=== PATIENT | female | born 1960 | race Caucasian/White ===

== ENCOUNTER 2024-03-02 06:31 | Day surgery (SDC) | payer OTHER ==
[2024-03-02] MEDS ORDERED: Lactated Ringers 1,000 ML IV ONE (06:40)
[2024-03-02 07:02] VITALS: RESP 16; O2SAT 97
[2024-03-02] MEDS: Lactated Ringers 1,000 ML IV SCH (07:12)
[2024-03-02] MEDS ORDERED: Xylocaine-Mpf 2% 5 Ml Vial ONE (07:37)
[2024-03-02] MEDS ORDERED: DIPRIVAN 200 MG/20 ML IV ONE (07:37)
[2024-03-02] MEDS ORDERED: ROBINUL ONE (07:39)
[2024-03-02] MEDS ORDERED: Versed 2 MG/2 ML Injection ONE (07:42)
[2024-03-02 08:28] VITALS: TEMP 97.3
[2024-03-02 08:46] VITALS: BP 124/75; PULSE 68
--- NOTE | 2024-03-02 09:08 | OP ---
SURGERY DATE/TIME: 03/02/2024 0734 PREOPERATIVE DIAGNOSIS: History of colon polyps. POSTOPERATIVE DIAGNOSIS: Normal colon. PROCEDURE: Colonoscopy. SURGEON: Dr. Valencia. ANESTHESIA: Medications given by anesthesia department. HISTORY: The patient is a 63-year-old white female presenting now for screening colonoscopy. She reports that she had a previous colonoscopy with polyps removed about five or six years ago. The patient was appraised of the risks of the procedure including the risk of perforation, phlebitis, untoward reaction to medication, bleeding and missed lesions. The patient verbalized her understanding and desired to have the procedure performed. DESCRIPTION OF PROCEDURE: The patient was given the medications by the anesthesia department. She had continuous pulse oximetry, ECG monitoring and intermittent blood pressure monitoring during the examination. She was placed in the left lateral decubitus position. A digital rectal examination was performed and revealed normal anal sphincter tone and no masses. The flexible Olympus pediatric colonoscope was used to intubate the rectum. A view of the colon was developed sequentially to the cecum. Upon insertion and withdrawal, including a retroflex view in the rectum, no mucosal lesions were encountered. The scope was removed from the patient who tolerated the procedure well and was sent back to OP recovery in good condition. The prep was noted to be fair to good.
== END 2024-03-02 08:49 | disposition home or self-care (01) ==
LOC: SDC 06:31
PROVIDERS: ATTEND Family Medicine
DX: Z12.11 Encounter for screening for malignant neoplasm of colon (principal); Z09 Encounter for follow-up examination after completed treatment for conditions other than malignant neoplasm; Z86.010 Personal history of colon polyps
CPT/HCPCS: J2250; J2704